=== PATIENT | male | born 1970 ===

== ENCOUNTER 2018-08-12 06:04 | Observation (INO) | payer OTHER ==
[~2018-08-12] VITALS: Ht 180.3 cm; Wt 110.2 kg
[2018-08-12] VITALS (11 sets, daily range): BP systolic 120–148; BP diastolic 70–94
[~2018-08-12 06:04] MED LIST: ceFAZolin sod 2 GM in D5W 110 ML IVPB ONE
[2018-08-12] MEDS ORDERED: NKM (06:48)
[2018-08-12] MEDS ORDERED: Midazolam 2mg/2ml Inj ONE (07:11)
[2018-08-12] MEDS ORDERED: EPINEPHrine 1mg/1ml Amp ONE (07:11)
[2018-08-12] MEDS ORDERED: Lidocaine 1% MPF 10mg/ml 5ml ONE (07:12)
[2018-08-12] MEDS ORDERED: Thrombin 5000 units TOPIC ONE ×2 (07:12→08:37)
[2018-08-12] MEDS ORDERED: fentaNYL 100 mcg/2 mL IV ONE (07:12)
[2018-08-12] MEDS ORDERED: Sodium Chloride 10ml vial INJ ONE (07:12)
[2018-08-12] MEDS ORDERED: Thrombin 5000 units spray kit TOPIC ONE (07:12)
[2018-08-12] MEDS ORDERED: Vancomycin 1gm inj IVPB ONE (07:12)
[2018-08-12] MEDS ORDERED: Propofol 200mg/20ml IV ONE ×2 (07:12→09:02)
[2018-08-12] MEDS ORDERED: Bacitracin 50000 Units Vial ONE (07:13)
[2018-08-12] MEDS ORDERED: Bupivacaine 0.5% Inj 30 ml vial INJ ONE ×2 (07:13→08:58)
[2018-08-12] MEDS ORDERED: Gelfoam Absorbable 1gm powder pkt TOPIC ONE (07:13)
[2018-08-12] MEDS ORDERED: Gelfoam Size TOPIC ONE (07:13)
[2018-08-12] MEDS ORDERED: D5 1/2NS 1,000 ML IV SCH (07:27)
--- NOTE | 2018-08-12 07:27 | Pre-Procedure Note/Attestation ---
Pre-Procedure Note/Attestation Complete Prior to Procedure Procedure Narrative: right l5-s1 microdecompression, foraminotomy and possible microdiscectomy Indications for Procedure Pre-Operative Diagnosis: lumbar radiculopathy Attestation I attest that I discussed the nature of the procedure; its benefits; risks and complications; and alternatives (and the risks and benefits of such alternatives ), prior to the procedure, with the patient (or the patient's legal labor union business representative). I attest that, if there was a reasonable possibility of needing a blood transfusion, the patient (or the patient's legal labor union business representative) was given the [facility] standardized written summary, pursuant to the Melvin Janis Blood Safety Act ([place] Health and Safety Code # 1645, as amended). I attest that I re-evaluated the patient just prior to the surgery and that there has been no change in the patient's H&P, except as documented below: Kieran Corado MD Aug 12, 2018 07:27
[2018-08-12] MEDS ORDERED: Zemuron 50mg/5ml Inj IV ONE (07:28)
[2018-08-12] MEDS ORDERED: HYDROcodone/Acetamin 7.5/325 tab ORAL PRN ×2 (07:30)
[2018-08-12] MEDS ORDERED: Morphine Sulfate 4mg/ml Inj (IV USE ONLY) IV PRN ×2 (07:30)
[2018-08-12] MEDS ORDERED: Morphine Sulfate 2mg/ml Inj IV PRN (07:30)
[2018-08-12] MEDS ORDERED: Sterile Water Irrig 1000ml IRRIG ONE (07:30)
[2018-08-12] MEDS ORDERED: Norco 5mg/325mg tab ORAL PRN (07:30)
[2018-08-12] MEDS ORDERED: Glycopyrrolate 0.2mg/ml 1ml Vial ONE (07:30)
[2018-08-12] MEDS ORDERED: Naloxone 0.4mg/ml Inj IVP PRN (07:30)
[2018-08-12] MEDS ORDERED: Neostigmine 1mg/ml 10ml Inj ONE (07:30)
[2018-08-12] MEDS ORDERED: LR 1000ml ONE (07:30)
[2018-08-12] MEDS ORDERED: Lidocaine 1% Plain 30 ml INJ ONE (08:06)
[2018-08-12] MEDS ORDERED: ePHEDrine 50mg/ml Inj ONE (08:21)
[2018-08-12] MEDS ORDERED: NS Irrig 1000ml IRRIG ONE (08:35)
[2018-08-12] MEDS ORDERED: LR 1000ml 1,000 ML IVLG SCH (09:07)
--- NOTE | 2018-08-12 09:13 | Anethesia Preoperative Eval ---
Anesthesia Pre-op PMH/ROS General Date of Evaluation: Aug 12, 2018 Time of Evaluation: 07:20 Anesthesiologist: Elliott ASA Score: ASA 1 Mallampati Score Class I : Soft palate, uvula, fauces, pillars visible Class II: Soft palate, uvula, fauces visible Class III: Soft palate, base of uvula visible Class IV: Only hard plate visible Mallampati Classification: Class III Surgeon: TERESE Diagnosis: Lumbar radiculopathy Surgical Procedure: Lumbar laminectomy Anesthesia History: none Allergies: Coded Allergies: No Known Allergies (Unverified , 08/07/18) Medications: see eMAR Past Medical History Cardiovascular: Denies: HTN, CAD, NV, valve dz, arrhythmia, other Pulmonary: Denies: asthma, COPD, AIDAN, other Gastrointestinal/Genitourinary: Denies: GERD, CRI, ESRD, other Neurologic/Psychiatric: Denies: dementia, CVA, depression/anxiety, TIA, other Endocrine: Denies: DM, hypothyroidism, steroids, other HEENT: Denies: cataract (L), cataract (R), glaucoma, JACKSON (L), JACKSON (R), other Hematology/Immune: Denies: anemia, DVT, bleeding disorder, other Musculoskeletal/Integumentary: Denies: OA, RA, DJD, DDD, edema, other PMH Narrative: Denies PSxH Narrative: Denies Anesthesia Pre-op Phys. Exam Physician Exam Last Vital Signs Date Time Temp Pulse Resp B/P (MAP) Pulse Ox O2 Delivery O2 Flow Rate FiO2 08/12/18 06:51 97.7 76 20 122/72 (89) 96 97.7 08/12/18 06:36 Room Air Constitutional: NAD Neurologic: CN 2-12 intact Cardiovascular: RRR Respiratory: CTA Gastrointestinal: S/NT/ND Airway Exam Mallampati Score: Class III MO: full ROM: full Teeth: intact Anesthesia Pre-op A/P Labs WNL Studies Pre-op Studies: EKG - NSR, CXR - NAD Risk Assessment & Plan Assessment: Healthy male Plan: GETA, SedLine Status Change Before Surgery: No Pre-Antibiotics Drug: Ancef 3 GM Given Within 1 Hr of Incision: Yes Time Given: 07:45 Melvin Gallagher MD Aug 12, 2018 09:13
[2018-08-12] MEDS ORDERED: DiphenhydrAMINE 50mg/ml Inj IVP PRN (09:15)
[2018-08-12] MEDS ORDERED: Hydromorphone 0.5mg/0.5ml inj IVP PRN (09:15)
[2018-08-12] MEDS ORDERED: Meperidine 50mg/ml Inj(FOR RIGORS ONLY) IVP PRN (09:15)
--- NOTE | 2018-08-12 09:15 | Immediate Post-Op Evaluation ---
Immediate Post-Op Evalulation Immediate Post-Op Evalulation Procedure: Lumbar laminectomy Right L5-S1 Date of Evaluation: Aug 12, 2018 Time of Evaluation: 09:50 IV Fluids: 800 Estimated Blood Loss: 30 Blood Pressure Systolic: 124 Blood Pressure Diastolic: 79 Pulse Rate: 95 Respiratory Rate: 12 O2 Sat by Pulse Oximetry: 95 Temperature (Fahrenheit): 99.0 Pain Score (1-10): 0 Nausea: No Vomiting: No Complications No complication Patient Status: reacts, patent, extubated, none Hydration Status: adequate Drug: Ancef Given Within 1 Hr of Incision: Yes Time Given: 07:45 Melvin Gallagher MD Aug 12, 2018 09:15
--- NOTE | 2018-08-12 09:42 | Brief Operative Note ---
Immediate Post Operative Note Operative Note Pre-op Diagnosis: lumbar radiculopathy Procedure: r l5s1 microdecompression and foraminotomy Post-op Diagnosis: cheryl Post-op Diagnosis: same as pre-op Findings: consistent w/pre-op dx studies Surgeon: Mak Bulldozer Mechanic: Cesar Anesthesiologist: Elliott Anesthesia: general Specimen: none Complications: yes Condition: stable Fluids: 1L Estimated Blood Loss: minimal - 30cc Drains: none Implant(s) used?: No Kieran Corado MD Aug 12, 2018 09:42
--- NOTE | 2018-08-12 12:05 | History and Physical ---
History of Present Illness General Date patient seen: Aug 12, 2018 Present Illness HPI 48 year old male with hx of lumbar radiculopathy admitted for R L5-S1 microdecompression and foraminotomy. After surgery, he is admitted to medical floor for postop care and pain management. Allergies: Coded Allergies: No Known Allergies (Unverified , 08/07/18) Medication History Scheduled No Known Medications* (NKM - No Known Medications*), 0 ., (Reported) Patient History Healthcare decision maker CHRISTIANE- Resuscitation status Full Code Advanced Directive on File Past Medical/Surgical History Past Medical/Surgical History: (1) Lumbar radiculopathy Review of Systems All Other Systems: negative except mentioned in HPI Physical Exam General Appearance: WD/WN, no apparent distress Lines, tubes and drains: peripheral HEENT: normocephalic, atraumatic Neck: non-tender, normal alignment Respiratory/Chest: chest wall non-tender, lungs clear Breasts: no masses Cardiovascular/Chest: normal peripheral pulses Abdomen: normal bowel sounds, non tender Last 24 Hour Vital Signs Date Time Temp Pulse Resp B/P (MAP) Pulse Ox O2 Delivery O2 Flow Rate FiO2 08/12/18 10:50 98.2 80 20 138/94 (109) 96 98.2 08/12/18 10:50 Nasal Cannula 3.0 08/12/18 10:35 98.4 79 18 148/90 96 Nasal Cannula 3 98.4 08/12/18 10:15 80 16 147/86 96 Nasal Cannula 3 08/12/18 10:00 87 15 130/85 96 Simple Mask 8 08/12/18 09:55 82 12 133/80 95 Simple Mask 8 08/12/18 09:50 84 12 126/79 94 Simple Mask 8 08/12/18 09:45 85 13 124/79 94 Simple Mask 8 08/12/18 09:43 210.2 95 12 95 08/12/18 09:41 99 87 14 125/74 94 Simple Mask 8 99.0 08/12/18 06:51 97.7 76 20 122/72 (89) 96 97.7 08/12/18 06:36 Room Air Height (Feet): 5 Height (Inches): 11.00 Weight (Pounds): 243 Medications Current Medications Medications (Trade) Dose Ordered Sig/Eve Route PRN Reason Start Time Stop Time Status Last Admin Dose Admin Acetaminophen/ Hydrocodone Bitart ([place] 5/325) 1 tab Q3H PRN ORAL pain score 1-3 08/12/18 07:30 08/19/18 07:29 Acetaminophen/ Hydrocodone Bitart ([place] 7.5/325) 1 tab Q3H PRN ORAL pain score 4-6 08/12/18 07:30 08/19/18 07:29 Acetaminophen/ Hydrocodone Bitart ([place] 7.5/325) 2 tab Q3H PRN ORAL pain scale 7-10 08/12/18 07:30 08/19/18 07:29 Cefazolin Sodium 1 gm/Dextrose 55 ml @ 110 mls/hr Q8H IV 08/12/18 16:00 08/13/18 08:29 Dextrose/Sodium Chloride 1,000 ml @ 100 mls/hr Q10H IV 08/12/18 07:27 09/11/18 07:26 08/12/18 11:33 Diphenhydramine HCl (Benadryl) 25 mg Q15M PRN IVP Itching 08/12/18 09:15 08/12/18 16:00 Hydromorphone HCl (Dilaudid) 0.5 mg NEEDED PRN IVP For Pain 08/12/18 09:15 08/12/18 16:00 Lactated Ringer's 1,000 ml @ 10 mls/hr Q24H IVLG 08/12/18 09:07 08/12/18 16:00 Meperidine HCl (Demerol) 25 mg NEEDED PRN IVP Shivering 08/12/18 09:15 08/12/18 16:00 Morphine Sulfate (Morphine Sulfate) 2 mg Q4H PRN IV Mild Pain (Pain Scale 1-3) 08/12/18 07:30 08/19/18 07:29 Morphine Sulfate (Morphine Sulfate) 4 mg Q3H PRN IV Severe Pain (Pain Scale 7-10) 08/12/18 07:30 08/19/18 07:29 Morphine Sulfate (Morphine Sulfate) 4 mg Q4H PRN IV Moderate Pain (Pain Scale 4-6) 08/12/18 07:30 08/19/18 07:29 Naloxone HCl (Narcan) 0.1 mg PRN PRN IVP RR<12/min, pt unarousable 08/12/18 07:30 09/11/18 07:29 Ondansetron HCl (Zofran) 4 mg Q1H PRN IVP Nausea & Vomiting 08/12/18 09:15 08/12/18 16:00 Assessment/Plan Problem List: (1) Lumbar radiculopathy ICD Codes: M54.16 - Radiculopathy, lumbar region SNOMED: [id number] (2) R L5-S1 microdecompression Assessment/Plan post op care pain management dvt prophylaxis symptomatic treatment Griselda Garcia MD Aug 12, 2018 12:05
--- NOTE | 2018-08-12 13:00 | Operative Note - Dictated ---
DATE OF OPERATION: 08/12/2018 PREOPERATIVE DIAGNOSIS: L5-S1 intraforaminal disk protrusion with neural foraminal stenosis, impingement of the exiting L5 nerve root with right lower extremity radiculopathy. POSTOPERATIVE DIAGNOSIS: L5-S1 intraforaminal disk protrusion with neural foraminal stenosis, impingement of the exiting L5 nerve root with right lower extremity radiculopathy. PROCEDURE PERFORMED: 1. Right-sided L5-S1 medial facetectomy, lumbar laminotomy, foraminotomy, decompression of the exiting L5 nerve root and the traversing S1 nerve root. 2. Intraoperative use of microscope. 3. Intraoperative use of fluoroscopy. SURGEON: Kirean Corado M.D. [employer]PL[employer] SALESPERSON: Dr. Scott Guerrero. ANESTHESIA: General endotracheal anesthesia. ANESTHESIOLOGIST: Melvin Gallagher M.D. INTRAOPERATIVE FINDING: Foraminal stenosis the exiting right L5 nerve root with impingement of the nerve root. ESTIMATED BLOOD LOSS: 30 mL. FLUIDS: 800 mL of crystalloid. INDICATIONS: The patient is a pleasant male, who failed nonoperative treatment and option for above treatment was given. Risks, alternatives, and benefits were discussed with the patient at length. Risks include, but are not limited to, anesthesia complications including , medical complications including liver, kidney, cardiopulmonary deficits, bleeding, infection, dural tear, CSF leak, nerve root injury, pars fracture, instability, reherniation, as well as continued symptoms. The patient understood and wished to proceed. DESCRIPTION OF OPERATION: The patient was brought into the operating room supine on a stretcher. Subsequently, appropriate IV lines were placed and 2 g of Ancef was administered. A surgical time-out was called. Anesthesia was induced. The patient was successfully intubated. Sequential compression devices were placed. The patient was gently turned over onto the Demond frame table. All bony prominences were well padded and the abdomen was assured to lay freely. The L5-S1 interspace was located with fluoroscopy. An indelible marker was used to millicent the midline at the level of the interspace. The patient was prepped and draped in the usual sterile fashion with alcohol, chlorhexidine scrub, ChloraPrep, and Ioban draping. An incision was carried out over L5-S1 and at this point a dissection via monopolar cautery was done towards the right side at L5-S1 onto the lamina at L5-S1 with subperiosteal dissection. The lateral joint capsule was well preserved and Analysis Intern retractors were set into place. A radiopaque marker was placed at the lower pedicle level and lateral fluoroscopy identified the right S1 pedicle appropriately and thus the L5-S1 interspace was positively identified. Now, attention was diverted to the decompression with a high-speed drill #2 through #5 Kerrison punches, curved and straight curette, a nerve hook, dental probe, Findlay probe, and interlumbar laminotomy, medial facetectomy was done. The ligamentum flavum was removed. The medial aspect of the superior articular facet was removed and the S1 nerve root was decompressed. At this point, attention was diverted to the foramina and the exiting L5 nerve root. The exiting L5 nerve root was impinged and there was foraminal stenosis. The tip of the superior facet of S1 was removed and complete decompression of the foramina at L5-S1 was completed for complete decompression of the exiting right L5 nerve root. A Zeng ball was placed into the foramina as well as a Rose probe and the foramina was found to be patent after the decompression. A Drayton 4 retractor was used to carefully dissect out the disk space and there was a small disk protrusion that was at this point no longer impinging on the exiting L5 nerve root as the nerve root was now slightly posterior displaced posteriorly, which were in place after the bony and ligamentous decompression. Now, triple antibiotic solution was used. A Valsalva 40 mm was used. There was no CSF leak. Hemostasis was achieved with Gelfoam, thrombin, bipolar cautery, as well as FloSeal. Attention was diverted to closure. A 1 g of vancomycin powder was placed subfascially as well as suprafascially. The dorsal lumbar fascia was closed with #1 Vicryl sutures in a watertight interrupted fashion. The subcuticular layer was closed with 2-0 Vicryl sutures and skin was closed with Dermabond. Sterile dressing tape was placed. The patient was turned supine, was extubated in stable condition, was taken to the recovery room in stable condition, was given postoperative instructions as well as postoperative medications including Yolyn, Soma, Naprosyn and Keflex as well as a postoperative appointment in seven to ten days. Kieran Corado M.D. DR: LUCIO JOB#: [id number] CC:
[2018-08-12] MEDS ORDERED: NORCO 5-325 TA1 EACH ORAL (13:57)
[2018-08-12] MEDS ORDERED: NAPROXEN250 MG ORAL (13:58)
[2018-08-12] MEDS ORDERED: SOMA350 MG PO (13:58)
[2018-08-12] MEDS ORDERED: CEPHALEXIN500 MG ORAL (13:59)
[2018-08-12] MEDS ORDERED: ceFAZolin 1gm/50ml Premix 50 ML IV SCH (16:00)
--- NOTE | 2018-08-12 18:40 | Diagnostic Imaging Report ---
Indication: Back pain. Technique: Single fluoroscopic image from spinal surgery submitted for archival the PACS. Surgeon: Mak Total fluoroscopy time: 4.4 seconds Total fluoroscopy dose: 2.53 mGy Comparison: None Findings: Fluoroscopic image from spinal surgery submitted for archival the PACS. Single image demonstrates surgical instruments projecting posteriorly at the level of the L5-S1 disc space. Impression: Single intraoperative fluoroscopic image from spinal surgery. Please see operative report.
--- NOTE | 2018-08-13 09:15 | 48 Hour Post Anesthesia Eval ---
Post Anesthesia Evaluation Procedure: Lumbar laminectomy Right L5-S1 Date of Evaluation: Aug 13, 2018 Nausea: No Vomiting: No Mental Status/LOC: patient returned to baseline - Patient was discharged home on 08/12/18 Follow-up Care/Observations: As per surgery Post-Anesthesia Complications: No anesthetic complication Melvin Gallagher MD Aug 13, 2018 09:15
== END 2018-08-12 14:36 | disposition home or self-care (01) ==
LOC: SDSOVERFLO 06:04 → INTOOBSV 06:04 → 3E 10:53
DX: M51.17 Intervertebral disc disorders with radiculopathy, lumbosacral region (principal)
CPT/HCPCS: 63056; 72020; 76000; 87081; 97161; G0378; J0171; J0690; J1170; J2001; J2250; J2310; J2405; J2704; J2710; J3010; J3370; J3490; 94003; 94150